=== PATIENT | female | born 1950 | race Caucasian/White ===

== ENCOUNTER 2022-01-22 11:35 | Day surgery (SDC) | payer MEDICARE, BC ==
[2022-01-22] VITALS (108 sets, daily range): BP systolic 109–168; BP diastolic 53–125; PULSE 49–65; TEMP 98.2–98.3; O2SAT 70–100
[~2022-01-22] VITALS: Ht 157.5 cm; Wt 142.3 kg
[~2022-01-22 11:35] MED LIST: ASPIR-LOX325 MG PO; CALCIUM 500500 M1 PO; CETIRIZINE; IMODIUM2 MG PO; METFORMIN500 MG PO; MULTIPLE VITAMI1 CAP PO; NORCO 325 MG-7.1 TAB; OXYCODONE5 M1 PO
--- NOTE | 2022-01-22 12:42 | NUR ---
Initial visit; Patient and her family thanked Billet Bed Operator for looking in on her and offering encouragement and prayer prior to her surgical procedure. Billet Bed Operator assured Oma she was in good hands and offered God's blessings.
[2022-01-22 13:05] LABS: HEMATOCRIT 38.5 % (37.0-47.0); HEMOGLOBIN 12.2 g/dl (12.5-16.0); MEAN CELL VOLUME 90 fl (80.0-100.0); MEAN CORPUSCULAR HEMOGLOBIN 28 pg (27-31); MEAN CORPUSCULAR HGB CONC 32 g/dl (33.0-37.0); MEAN PLATELET VOLUME 9.8 fl (7.4-10.4); PLATELET COUNT 277 K/mm3 (130-400); RED BLOOD COUNT 4.29 M/mm3 (4.10-5.30); REDCELL DISTRIBUTION WIDTH-CV 14.3 % (11.5-14.5)
[2022-01-22 13:12] LABS: PROTHROMBIN TIME 11.9 SECONDS (9.7-12.8)
[2022-01-22 13:15] LABS: PARTIAL THROMBOPLASTIN TIME 31.6 SECONDS (26.0-37.0)
[2022-01-22 13:28] LABS: CALCIUM 9.5 mg/dL (8.4-10.2); CREATININE, serum 0.77 mg/dL (0.57-1.11); POTASSIUM 3.8 mmol/L (3.5-4.5)
--- NOTE | 2022-01-22 14:08 | NUR ---
PATIENT ALERT AND ORIENTED, NO REPORTS OF CHEST PAIN. FAMILY AT BEDSIDE. SEE MERGE FOR PROMOTIONS INTERN PROCEDURE DETAILS WELL HEMODYNAMIC MONITOR, VS AND MEDICATION ADMINISTRATION
[2022-01-22] MEDS ORDERED: LASIX 40MG TABL40 MG PO (14:31)
--- NOTE | 2022-01-22 14:35 | NUR ---
Pt returned from catheter builder; bedside report received; pt is not currently hooked up to the vital signs monitor d/t linen/bed change; TR band to R wrist over radial puncture site, no s/s of bleeding or hematoma, pulses present.
--- NOTE | 2022-01-22 16:20 | NUR ---
TR band to R wrist over radial puncture site CDI, without s/s of bleeding or hematoma, pulses intact; 17ml of air in band, 3ml taken out, 14ml of air remaining.
--- NOTE | 2022-01-22 16:35 | NUR ---
4mls of air released from TR band, now 10mls of air remaining; R radial puncture site remains CDI and without s/s of bleeding or hematoma, pulses present.
--- NOTE | 2022-01-22 17:10 | NUR ---
4mls of air released from TR band, 6 mls of air remaining; R radial puncture site CDI and without s/s of hematoma or bleeding.
--- NOTE | 2022-01-22 17:35 | NUR ---
3mls of air taken out of TR band, 3mls remaining; R radial puncture site without s/s of hematoma or bleeding, pulses intact.
--- NOTE | 2022-01-22 18:15 | NUR ---
R radial puncture site remains CDI and without s/s of hematoma or bleeding; gave education and discharge instructions to pt, son, and DIL at bedside, all verbalized understanding; discussed new initiation of PO Lasix and importance of taking it while also adhereing to a low sodium diet, pt verbally acknowledged; went over R radial puncture site precautions once again, ensured site was CDI and armboard in place; wheeled to private POV with son and DIL.
--- NOTE | 2022-01-22 18:30 | NUR ---
3mls of air taken out of TR band, none remaining; R radial puncture site CDI, without s/s of bleeding or hematoma, pulses intact, pt denies pain; cleaned site, dressed with tegaderm, gauze and coban used as pressure dressing, armboard replaced.
[2022-01-23] VITALS (21 sets, daily range): O2SAT 98–100
== END 2022-01-22 18:15 | disposition home or self-care (01) ==
LOC: COL.CAR 11:35
PROVIDERS: Internal Medicine Cardiovascular Disease
DX: I25.10 Atherosclerotic heart disease of native coronary artery without angina pectoris (principal); I11.0 Hypertensive heart disease with heart failure; I50.32 Chronic diastolic (congestive) heart failure; I48.0 Paroxysmal atrial fibrillation; I34.0 Nonrheumatic mitral (valve) insufficiency; R94.39 Abnormal result of other cardiovascular function study; Z79.899 Other long term (current) drug therapy
CPT/HCPCS: J1644; J1940; J2250; J3010; J7030

== ENCOUNTER → 2022-05-09 | Outpatient (CLI) | payer MEDICARE, BC ==
[~2022-05-09] MED LIST changes: +LASIX 40MG TABL40 MG PO
== END ==
LOC: ZCOL.LAB 15:19
DX: I50.9 Heart failure, unspecified (principal)